=== PATIENT | female | born 1965 | race Caucasian/White ===

== ENCOUNTER → 2017-03-11 | Outpatient (CLI) | payer OTHER, MEDICARE ==
[2017-03-11 12:34] LABS: HEMOGLOBIN 13.9 gm/dl (12.3-15.3); RED BLOOD COUNT 4.24 M/UL (4.00-5.10); WHITE BLOOD COUNT 7.7 K/UL (4.5-11.0)
[2017-03-11 12:51] LABS: BUN/CREATININE RATIO 18 (0-10)
== END ==
LOC: LAB 11:47
PROVIDERS: Emergency Medicine
DX: I10 Essential (primary) hypertension (principal); R07.89 Other chest pain; M54.5 Low back pain; J43.8 Other emphysema; E78.2 Mixed hyperlipidemia
CPT/HCPCS: 36415; 71020; 80053; 84484; 85027; 93005

== ENCOUNTER → 2017-03-13 | Outpatient (CLI) | payer OTHER, MEDICARE | LOC: KOH-I 09:30 | DX: N30.00 Acute cystitis without hematuria (principal); E78.2 Mixed hyperlipidemia; F17.218 Nicotine dependence, cigarettes, with other nicotine-induced disorders; G89.4 Chronic pain syndrome; I10 Essential (primary) hypertension; I25.10 Atherosclerotic heart disease of native coronary artery without angina pectoris; J20.8 Acute bronchitis due to other specified organisms; J30.9 Allergic rhinitis, unspecified; J44.1 Chronic obstructive pulmonary disease with (acute) exacerbation; M13.812 Other specified arthritis, left shoulder; M51.36 Other intervertebral disc degeneration, lumbar region; R22.2 Localized swelling, mass and lump, trunk; R53.83 Other fatigue; Z71.6 Tobacco abuse counseling; N20.0 Calculus of kidney; K59.00 Constipation, unspecified | CPT/HCPCS: 74176 ==

== ENCOUNTER → 2017-03-31 | Outpatient (CLI) | payer OTHER, MEDICARE ==
[2017-03-31 14:49] LABS: HEMOGLOBIN 13.3 gm/dl (12.3-15.3); RED BLOOD COUNT 4.22 M/UL (4.00-5.10); WHITE BLOOD COUNT 8.9 K/UL (4.5-11.0)
[2017-03-31 14:57] LABS: BUN/CREATININE RATIO 17 (0-10)
== END ==
LOC: LAB 13:33
PROVIDERS: Urology
DX: N20.0 Calculus of kidney (principal); N13.30 Unspecified hydronephrosis; M41.9 Scoliosis, unspecified; J98.4 Other disorders of lung; Z88.1 Allergy status to other antibiotic agents; Z88.5 Allergy status to narcotic agent; Z88.2 Allergy status to sulfonamides
CPT/HCPCS: 36415; 71020; 80053; 85027; 87086; 93005

== ENCOUNTER → 2017-04-06 | Outpatient (CLI) | payer OTHER, MEDICARE | LOC: RAD 15:04 | DX: N20.0 Calculus of kidney (principal); Z96.0 Presence of urogenital implants | CPT/HCPCS: 74000 ==

== ENCOUNTER → 2021-01-18 | Outpatient (CLI) | payer BC, MEDICARE, OTHER ==
[~2021-01-18] MED LIST: ALBUTEROL0.63 MG/3 INH; BREO ELLIPTA 11 EACH INH; CLARITIN10 MG PO; ECOTRIN81 MG PO; HABITROL 21 MG P1 EA TOP; LOPRESSOR 25 MG25 MG PO; NITROSTAT0.4 MG SL; NORCO 7.5-3251 EACH PO; OMNICEF 300 MG300 MG PO; PROTONIX40 MG PO; TRICOR145 MG PO; VENTOLIN HFA 66.7 GM INH
[2021-01-18 11:33] LABS: HEMOGLOBIN 14.2 gm/dl (12.3-15.3); RED BLOOD COUNT 4.43 M/UL (4.00-5.10); WHITE BLOOD COUNT 7.2 K/UL (4.5-11.0)
[2021-01-18 12:00] LABS: BUN/CREATININE RATIO 13 (0-10)
== END ==
LOC: LAB 09:34
PROVIDERS: Nurse Practitioner Family
DX: I10 Essential (primary) hypertension (principal); R53.83 Other fatigue; R73.09 Other abnormal glucose; E78.5 Hyperlipidemia, unspecified; E53.8 Deficiency of other specified B group vitamins; E55.9 Vitamin D deficiency, unspecified; D64.9 Anemia, unspecified
CPT/HCPCS: 36415; 80053; 80061; 82607; 83036; 83540; 84439; 84443; 85025